=== PATIENT | female | born 1995 | race Two or more races ===

== ENCOUNTER 2019-12-03 01:17 | Emergency (ER) | payer BC, OTHER ==
[~2019-12-03] VITALS: Ht 157.5 cm; Wt 84.1 kg
[~2019-12-03 01:17] MED LIST: PEPTO
[2019-12-03] MEDS ORDERED: PREN-155 PO ×2 (01:27→01:28)
[2019-12-03 01:46] LABS: APPEARANCE,URINE CLOUDY (CLEAR); BILIRUBIN,URINE NEGATIVE (NEGATIVE); GLUCOSE, URINE (UA) NEGATIVE (NEGATIVE); KETONES,URINE NEGATIVE (NEGATIVE); LEUKOCYTE ESTERASE ,URINE SMALL (NEGATIVE); NITRATE,URINE NEGATIVE (NEGATIVE); OCCULT BLOOD,URINE LARGE (NEGATIVE); PROTEIN,URINE TRACE (NEGATIVE); UROBILINOGEN,URINE 0.2 mg/dL (<=1.0)
[2019-12-03 01:57] LABS: BACTERIA,URINE Few /HPF (None Seen); SQUAMOUS EPITHELIAL CELL,UR Few /LPF (None Seen)
[2019-12-03 03:17] VITALS: BP 108/69
== END 2019-12-03 04:30 | disposition home or self-care (01) ==
LOC: EMS 01:17
DX: O26.891 Other specified pregnancy related conditions, first trimester (principal); R82.71 Bacteriuria; Z3A.01 Less than 8 weeks gestation of pregnancy
CPT/HCPCS: 76801; 76817; 86901; 87086